=== PATIENT | male | born 1975 | race Caucasian/White ===

== ENCOUNTER 2025-04-14 09:53 | Outpatient (AMB) | payer OTHER, SELFPAY ==
--- NOTE | 2025-04-14 10:55 | A.OFFPC_ITS ---
Vital Signs 04/14/25 10:56 Height 5 ft 10 in Weight 214 lb BMI 30.7 BP 140/92 H Blood Pressure Location Rt brachial Position Sitting Respiration 16 Pulse 72 Pulse Source Pulse Oximeter Temp 98.2 F Temp Source Oral Pulse Oximetry (%) 98 Oxygen Delivery Method Room Air Intake Visit Reasons: Hernia Intake Note: Pt is here today as a New Patient to [facility] and c/o umbilical hernia has it for 12yrs Allergies No Known Allergies Allergy (Verified 04/14/25 11:07) Medication List - Last Reconciled 04/14/25 by Carmen Monge MD ascorbic acid (vitamin C) 1,000 mg PO DAILY al (Zingiber officinalis) 500 mg PO DAILY fq-1-hav-epa-fish oil-vit D3 300-1,000-1,000 mg-mg-unit caps PO sya-Fewjgg-ktzq-qofv-K5-T7-Zn 30-25-62.5 mg (Prostate Health Men's) caps PO Tobacco use date assessed: 04/14/25 Dental Screening Dental Screen Date: 04/14/25 Did you have a dental visit in the last 12 months?: No Did you have a dental problem in the last 6 months where you did not have access to dental care?: No Was dental information given to patient?: Patient has dentist HPI Hernia HPI Details 41-year-old male here today complaining of painful umbilical hernia, which has been present now for the last 5 years. Patient now states that it hurts whenever he lifts anything heavy and seems to be increasing in size. [facility] Medical History (Updated 04/14/25 @ 11:12 by Carmen Monge MD) Irreducible umbilical hernia Surgical History (Updated 04/14/25 @ 11:12 by Carmen Monge MD) No pertinent past surgical history Family History (Updated 04/14/25 @ 11:14 by Carmen Monge MD) Father Brain cancer Mother Multiple sclerosis Paternal Uncle Diabetes mellitus Social History Housing: House Patient Tobacco Use Status: Never used Tobacco e-Cigarette/Vaping Use: Never Used service: No Current occupational status: employed Cognitive needs: No Hearing needs: No Vision needs: No Questionnaire PHQ-9 Over the last 2 weeks, how often have you been bothered by any of the following problems? 1. Little interest or pleasure in doing things: not at all 2. Feeling down, depressed, or hopeless: not at all 3. Trouble falling or staying asleep, or sleeping too much: not at all 4. Feeling tired or having little energy: not at all 5. Poor appetite or overeating: not at all 6. Feeling bad about yourself - or that you are a failure or have let yourself or your family down: not at all 7. Trouble concentrating on things, such as reading the newspaper or watching television: not at all 8. Moving or speaking so slowly that other people could have noticed. Or the opposite - being so fidgety or restless that you have been moving around a lot more than usual: not at all 9. Thoughts that you would be better off or of hurting yourself in some way: not at all Total score: 0 Depression Screening Interpretation: Negative Depression Screening Done: Yes 91210 - PHQ-9 Billing: Yes Source: Developed by Drs. Sergei Weiner, Radha Haq, Judson Ferguson and colleagues, with an educational lotus from [employer]. Thrive Questionnaire Date Thrive assessed: 04/11/25 I am a: Patient What is your living situation today?: I have a steady place to live Within the past 12 months, did the food you bought not last and you didn't have the money to get more?: Never true Within the past 12 months, did you worry whether your food would run out before you got money to buy more?: Never true Do you have trouble paying for medicines?: No Do you have trouble getting transportation to medical appointments?: No Do you have trouble paying your heating and electricity bill?: No Do you have trouble taking care of your child, family member or friend?: No Do you have trouble with day-to-day activities such as bathing, preparing meals, shopping, managing finances, etc.?: No Are you currently unemployed and looking for a job?: No Are you interested in more education?: No Please select the resources that you would like help with: None Currently or been in a relationship where the following occur: No concerns reported THRIVE Score: 0 AUDIT C Alcohol Use Questionnaire (AUDIT-C) 1. How often do you have a drink containing alcohol?: 2-4 times a month 2. How many drinks containing alcohol do you have on a typical day when you are drinking?: 3 or 4 3. How often do you have six or more drinks on one occasion?: Never Total Score: 3 ASHKAN-7 AMB Questionnaire ASHKAN-7 Date ASHKAN - 7 assessed: 04/14/25 Feeling nervous, anxious, or on edge: 0 = Not at all Not being able to stop or control worryin = Not at all Worrying too much about different things: 0 = Not at all Trouble relaxin = Not at all Being so restless that it is hard to sit still: 0 = Not at all Becoming easily annoyed or irritable: 0 = Not at all Feeling afraid as if something awful might happen: 0 = Not at all Total ASHKAN-7 score (0-4 normal; 5-9 mild; 10-14 moderate; 15-21 severe): 0 Source: Developed by Drs. Sergei Weiner, Radha Haq, Judson Ferguson and colleagues, with an educational lotus from [employer]. Review of Systems Const All systems reviewed & are unremarkable except as noted in HPI and below Physical exam (Primary Care) Vital Signs: Last Vital Signs Temp 98.2 F 04/14/25 10:56 Pulse 72 04/14/25 10:56 Resp 16 04/14/25 10:56 BP 140/92 H 04/14/25 10:56 Pulse Ox 98 04/14/25 10:56 Oxygen Delivery Method Room Air 04/14/25 10:56 BMI result Body Mass Index 30.7 Tobacco/Smoking Status: Tobacco use Status Tobacco use date assessed 04/14/25 04/14/25 11:06 Patient Tobacco Use Status Never used Tobacco 04/14/25 11:06 e-Cigarette/Vaping Use Never Used 04/14/25 11:06 PHQ-9: PHQ-9 Score PHQ-9: Total score 0 04/14/25 11:17 Depression Screening Interpretation: Negative Thrive Assessment: Date of Thrive Assessment Date Thrive assessed 04/11/25 04/14/25 11:06 Currently or been in a relationship where the following occur: No concerns reported Const General: comfortable, no acute distress and alert Orientation/consciousness: patient oriented x3 HENMT Ears: external ears normal General nose exam: Normal external nose present Mouth: Normal oral and palatal mucosa present, oropharynx normal and moist mucous membranes Neck Neck: Yes full ROM, Yes no lymphadenopathy and Yes supple Resp Effort & Inspection: normal respiratory effort and able to speak in complete sentences Auscultation: clear to auscultation bilaterally Cardio Rate: regular rate Rhythm: regular rhythm Heart sounds: S1 normal heart sound present and S2 normal heart sound present GI Other: Irreducible umbilical hernia present Palpation (GI): Soft to palpation, nontender and no masses Auscultation: normal bowel sounds Skin General skin exam: no rashes or lesions noted Neuro General: patient oriented x3, gait normal, tone normal, moves all extremities, Normal light touch and pain sensation and no focal motor deficits Cranial nerves: Yes CN's II-XII intact bilaterally Cognition (Neuro): normal cognition Coding Level of Care Code Est Pt Level 4 (01690) Diagnoses Irreducible umbilical hernia K42.0 Additional Codes PHQ-9 - 47636 - PHQ-9 Billing: Yes ([id number]) Assessment & Plan Assessment & Plan (1) Irreducible umbilical hernia: Code(s): K42.0 - Umbilical hernia with obstruction, without gangrene Category: Medical Plan: General surgery consult obtained. Patient advised to avoid any heavy lifting of weights. Until seen and evaluated by surgery Orders: Referrals General Surgery Referral K42.0 - Umbilical hernia with obstruction, without gangrene
[2025-04-14 10:56] VITALS: BP 140/92; PULSE 72; RESP 16; TEMP 36.8; O2SAT 98; BMI 30.7
== END 2025-04-14 11:23 | disposition home or self-care (01) ==
PROVIDERS: Visit Provider Internal Medicine
DX: K42.0 Umbilical hernia with obstruction, without gangrene (principal)

== ENCOUNTER → 2025-04-14 09:53 | Outpatient (BNVA) | payer OTHER, SELFPAY | PROVIDERS: Visit Provider Internal Medicine | DX: K42.0 Umbilical hernia with obstruction, without gangrene (principal) | CPT/HCPCS: 96127; 99212 ==

== ENCOUNTER 2025-05-12 06:02 | Outpatient (REF) | payer OTHER, SELFPAY ==
[2025-05-12 10:23] LABS: Hematocrit 44.8 % (42.0-52.0); Hemoglobin 15.9 g/dl (14.0-18.0)
[2025-05-12 10:40] LABS: Alanine Aminotransferase 82 U/L (0-40); Anion Gap 17 (12-20); Aspartate Amino Transferase 67 U/L (5-37); Blood Urea Nitrogen 17 mg/dL (9-16); Calcium 9.4 mg/dL (8.4-10.2); Carbon Dioxide 25 mmol/L (22-29); Chloride 98 mmol/L (96-108); Cholesterol 285 mg/dL (<200); Estimated Glomerular Filt Rate > 60; HDL Cholesterol 46 mg/dL (>40); Potassium 3.7 mmol/L (3.3-5.1); Sodium 136 mmol/L (135-145); Triglycerides 316 mg/dL (<150)
== END 2025-05-12 06:03 | disposition home or self-care (01) ==
LOC: HO.HMGCLDS 06:02
PROVIDERS: PCP Internal Medicine; Visit Provider Internal Medicine
DX: Z13.1 Encounter for screening for diabetes mellitus (principal); Z13.220 Encounter for screening for lipoid disorders
CPT/HCPCS: 36415; 80048; 80061; 84450; 84460; 85014; 85018

== ENCOUNTER 2025-05-25 10:10 | Outpatient (AMB) | payer OTHER, SELFPAY ==
[2025-05-25 10:14] VITALS: BP 130/90; PULSE 63; RESP 15; TEMP 36.8; O2SAT 98; BMI 30.1
--- NOTE | 2025-05-25 10:14 | A.OFFPC_ITS ---
Vital Signs 05/25/25 10:14 Height 5 ft 10 in Weight 210 lb BMI 30.1 BP 130/90 H Blood Pressure Location Lt brachial Position Sitting Respiration 15 Pulse 63 Pulse Source Pulse Oximeter Temp 98.3 F Temp Source Oral Pulse Oximetry (%) 98 Oxygen Delivery Method Room Air Intake Visit Reasons: PE PER DR Albarado Intake Note: Pt is here today for his PE Allergies No Known Allergies Allergy (Verified 05/25/25 10:42) Medication List - Last Reconciled 05/25/25 by Carmen Monge MD ascorbic acid (vitamin C) 1,000 mg PO DAILY al (Zingiber officinalis) 500 mg PO DAILY oq-5-bjs-epa-fish oil-vit D3 300-1,000-1,000 mg-mg-unit caps PO mpg-Yjycih-umos-wwxs-U4-W1-Zn 30-25-62.5 mg (Prostate Health Men's) caps PO Tobacco use date assessed: 05/25/25 Dental Screening Dental Screen Date: 05/25/25 Did you have a dental visit in the last 12 months?: No Did you have a dental problem in the last 6 months where you did not have access to dental care?: No Was dental information given to patient?: Patient has dentist HPI PE PER DR Albarado HPI Details - The patient is a 49-year-old male pres enting for a physical exam. Review of recent labs showed elevated fasting glucose at 331 mg/dL. Reports increased thirst and frequent urination. No family history of diabetes mellitus, except for paternal uncle diagnosed when he was in his 70's. Patient has been eating home cooked meals, avoiding a lot of starches, does not eat junk food but drinks diet soda. States that he stays active, walks regularly for exercise - has dyslipidemia as noted on latest fa sting labs with Total cholesterol is 285 mg/dL, triglycerides 316 mg/dL, and LDL 176 mg/dL - has an umbilical hernia which hurts wh enever it gets bumped, present for 12 years, causing discomfort, with a surgical consultation scheduled for next month with Dr. Riggs. - History of LASIK surgery: Underwent diop ccessful LASIK surgery three months ago at [facility] Medical History (Updated 05/25/25 @ 11:16 by Carmen Monge MD) Dyslipidemia Uncontrolled type 2 diabetes mellitus with hyperglycemia Irreducible umbilical hernia Surgical History (Updated 05/26/25 @ 10:08 by Carmen Monge MD) S/P LASIK surgery Family History Father Brain cancer Mother Multiple sclerosis Paternal Uncle Diabetes mellitus Social History Housing: House Patient Tobacco Use Status: Never used Tobacco e-Cigarette/Vaping Use: Never Used service: No Current occupational status: employed Cognitive needs: No Hearing needs: No Vision needs: No Questionnaire PHQ-9 Over the last 2 weeks, how often have you been bothered by any of the following problems? Depression Screening Interpretation: Negative Depression Screening Done: Yes Source: Developed by Drs. Sergei Weiner, Radha Haq, Judson Ferguson and colleagues, with an educational lotus from [employer]. Thrive Questionnaire Date Thrive assessed: 04/11/25 I am a: Patient What is your living situation today?: I have a steady place to live Within the past 12 months, did the food you bought not last and you didn't have the money to get more?: Never true Within the past 12 months, did you worry whether your food would run out before you got money to buy more?: Never true Do you have trouble paying for medicines?: No Do you have trouble getting transportation to medical appointments?: No Do you have trouble paying your heating and electricity bill?: No Do you have trouble taking care of your child, family member or friend?: No Do you have trouble with day-to-day activities such as bathing, preparing meals, shopping, managing finances, etc.?: No Are you currently unemployed and looking for a job?: No Are you interested in more education?: No Please select the resources that you would like help with: None Currently or been in a relationship where the following occur: No concerns reported THRIVE Score: 0 ASHKAN-7 AMB Questionnaire ASHKAN-7 Date ASHKAN - 7 assessed: 04/14/25 Source: Developed by Drs. Sergei Weiner, Radha Haq, Judson Ferguson and colleagues, with an educational lotus from [employer] Review of Systems Const Denies body aches, Denies fatigue, Denies fever(s), Denies headache(s) and Denies weakness Eyes Denies change in vision ENT Denies dizziness, Denies dry mouth, Denies headache(s) and Denies nasal congestion Card Denies chest pain, Denies lightheadedness, Denies palpitations and Denies dyspnea Resp Denies chest congestion, Denies cough, Denies dyspnea and Denies wheezing GI Denies abdominal pain, Denies change in bowel habits and Denies heartburn Denies hematuria, Denies difficulty urinating and Denies dysuria Musc Reports no additional complaints Skin/Breast Reports as per HPI and Denies rash Neuro Denies dizziness, Denies headache(s) and Denies weakness Psych Reports no additional complaints Endo Reports as per HPI, Denies fatigue and Denies palpitations Philip/Lymph Denies easy bruising Aller/Immun Denies seasonal rhinorrhea and Denies wheezing Physical exam (Primary Care) Vital Signs: Last Vital Signs Temp 98.3 F 05/25/25 10:14 Pulse 63 05/25/25 10:14 Resp 15 05/25/25 10:14 BP 130/90 H 05/25/25 10:14 Pulse Ox 98 05/25/25 10:14 Oxygen Delivery Method Room Air 05/25/25 10:14 BMI result Body Mass Index 30.1 Tobacco/Smoking Status: Tobacco use Status Tobacco use date assessed 05/25/25 05/25/25 10:15 Patient Tobacco Use Status Never used Tobacco 05/25/25 10:15 e-Cigarette/Vaping Use Never Used 05/25/25 10:15 Depression Screening Interpretation: Negative Thrive Assessment: Date of Thrive Assessment Date Thrive assessed 04/11/25 05/25/25 10:15 Currently or been in a relationship where the following occur: No concerns reported Advance Care Planning discussion: Completed/Scanned Date of discussion: 05/25/25 Who was present: Patient Forms completed: Health Care Proxy Time spent: 16-45 minutes Actual minutes spent: 2 Const General: comfortable, no acute distress and alert Orientation/consciousness: patient oriented x3 HENMT Ears: external ears normal General nose exam: Normal external nose present Mouth: Normal oral and palatal mucosa present, oropharynx normal and moist mucous membranes Neck Neck: Yes full ROM, Yes no lymphadenopathy and Yes supple Chest Chest palpation & inspection: normal inspection of the chest Resp Effort & Inspection: normal respiratory effort and able to speak in complete sentences Auscultation: clear to auscultation bilaterally Cardio Rate: regular rate Rhythm: regular rhythm Heart sounds: S1 normal heart sound present and S2 normal heart sound present GI Other: Irreducible umbilical hernia present Palpation (GI): Soft to palpation, nontender and no masses Auscultation: normal bowel sounds General: Yes no CVA tenderness Male General Exam: Yes normal external exam Back/Spine/Pelvis Back: no CVA tenderness Skin General skin exam: no rashes or lesions noted Neuro General: patient oriented x3, gait normal, tone normal, moves all extremities, Normal light touch and pain sensation, no focal motor deficits and normal sensation to monofilament Cranial nerves: Yes CN's II-XII intact bilaterally Cognition (Neuro): normal cognition Gait exam (Neuro): Normal gait present Extrem General: Yes normal to inspection, Yes full ROM, Yes no joint enlargement, Yes no clubbing, cyanosis or edema, Yes no calf tenderness and Yes normal gait Psych Appearance: grossly normal and well kempt Mental Status: mental status grossly normal Speech and movement: Normal speech and movement present Affect: normal affect Results AMB Hemoglobin A1c AMB Hemoglobin A1c 13.4 % Last Edit by Torri Ballesteros CMA on 05/25/25 10:59 Results Reviewed Results Reviewed: Laboratory Last Values Hgb A1c (Clinic) 13.4 % (4.0-6.0) H 05/25/25 10:52 Name: Espinoza Moore Age/Sex: 49/M : 1975 Unit#: [id number] Attend Dr: Carmen Monge MD Re05/12/25 Status: DEP REF Location: [facility] Disch: SPEC : [id number] JAMES: 05/12/25 STATUS: COMP REQ : [id number] RECD: 05/12/[address]: Carmen Monge MD COMP: 05/12/253 ENTERED: 05/12/[address]: ORDERED: HGB and HCT Test Result Flag Reference HGB 15.9 14.0-18.0 g/dl HCT 44.8 42.0-52.0 % Name: Espinoza Moore Age/Sex: 49/M : 1975 Unit#: [id number] Attend Dr: Carmen Monge MD Re05/12/25 Status: DEP [facility] Disch: SPEC : [id number] JAMES: 05/12/25 STATUS: COMP REQ : [id number] RECD: 05/12/[address]: Carmen Monge MD COMP: 05/12/25 ENTERED: 05/12/[address]: ORDERED: Met Prof Fast, AST, ALT, Lipid Panel Test Result Flag Reference Sodium 136 135-145 mmol/L Potassium 3.7 3.3-5.1 mmol/L CL 98 96-108 mmol/L CO2 25 22-29 mmol/L Gap 17 12-20 BUN 17 H 9-16 mg/dL Creat 1.05 0.5-1.4 mg/dL eGFR > 60 Chronic Kidney Disease: Estimated GFR < 60 mL/min/1.73m2 Severe Kidney Disease: Estimated GFR < 15 mL/min/1.73m2 FBS 331 H 60-99 mg/dL A fasting glucose of 126 mg/dl or greater on more than one occasion is considered diagnostic of diabetes. CA 9.4 8.4-10.2 mg/dL AST (GOT) 67 H 5-37 U/L ALT (GPT) 82 H 0-40 U/L Triglyceride 316 H <150 mg/dL Desirable Triglyceride: less than 150 mg/dL Borderline High Triglyceride 150-199 mg/dL High Triglyceride: 200-499 mg/dL Very High Triglyceride: greater than or equal to 5OO mg/dL Cholesterol 285 H <200 mg/dL Desirable Cholesterol: less than 200 mg/dL Borderline High Cholesterol: 200-239 mg/dL High Cholesterol: greater than 239 mg/dL LDL Calculated 176 H <100 mg/dL Desirable LDL: less than 100 mg/dL Near Optimal/Above Optimal LDL: 110-129 mg/dL Borderline High LDL: 130-159 mg/dL High LDL: 160-189 mg/dL Very High LDL: greater than or equal to 190 mg/dL HDL 46 >40 mg/dL Desirable HDL: greater than 40 mg/dL Note: This HDL assay may give artificially low results in patients with liver disease. Coding Level of Care Code Est Pt Prev Care 40-64y(03656) Diagnoses Annual visit for general adult medical examination with abnormal findings Z00.01 Uncontrolled type 2 diabetes mellitus with hyperglycemia E11.65 Dyslipidemia E78.5 Advance directive discussed with patient Z71.89 Additional Codes Vital Signs *Quality* - Advance Care Planning discussion: Completed/Scanned ([id number]) Vital Signs *Quality* - Time spent: 16-45 minutes ([id number]) Assessment & Plan Assessment & Plan (1) Annual visit for general adult medical examination with abnormal findings: Code(s): Z00.01 - Encounter for general adult medical examination with abnormal findings Plan: Recent fasting lab results reviewed with patient. Recommended dental visit every 6 months and regular eye exams, yearly for routine eye exam and diabetes retinopathy screening. Take adequate calcium in diet and vitamin-D 3 at 2000 IU per cap once a day, in addition to weight-bearing exercises to help maintain good muscle tone and weight control. Instructed to do self-testicular exam check for any mass. Advised to get yearly flu shot, pneumonia vaccine as he is newly diagnosed to have diabetes mellitus, Tdap and COVID booster but patient does not want to get any vaccines at this time. (2) Uncontrolled type 2 diabetes mellitus with hyperglycemia: Code(s): E11.65 - Type 2 diabetes mellitus with hyperglycemia Category: Medical Plan: New diagnosed diabetes mellitus. Patient does not want to start any insulin at present time, will start on metformin ER 750 mg taken 1 tablet twice a day with meals. Advised to initially take once a day for the 1st week, and increase it to twice a day if tolerated. Referred to early childhood special educator for guidance, prescription sent also for Onetouch Ultra meter, One-Touch Ultra test strips and lancets, to check the goes twice a day before meals, and record readings. Bring it with him on appointment with early childhood special educator. Counseled regarding importance of yearly diabetes retinopathy screening. Patient advised to inspect feet daily, for any signs of injury, callus or infection. Compliance with diet and regular exercise again stressed. Blood pressure goal is less than 130/80, goal LDL is less than 100 and goal hemoglobin A1c is less than 7% follow-up appointment made in--3-months, after fasting labs done. Advised to get yearly flu shot and pneumonia vaccine but patient declined getting vaccines at this time (3) Dyslipidemia: Code(s): E78.5 - Hyperlipidemia, unspecified Category: Medical Plan: Reviewed recent fasting lipid profile with patient with elevated triglycerides total cholesterol and LDL cholesterol noted .. Started on rosuvastatin 5 mg to take 1 tablet 3 times a week for 3 months, in addition to adherence to low-cholesterol diet and moderate intensity exercise, at least 30 minutes 4 times a week. Advised patient to make healthy food choices, eat more fruits, vegetables, whole grains, wild caught fish and low-fat dairy. Limit amount of meat and fried or fatty food products, as well as processed foods and fast foods. Follow-up scheduled with repeat fasting lipid panel in 3 months. (4) Advance directive discussed with patient: Code(s): Z71.89 - Other specified counseling Plan: Initiated the conversation about Advanced Directives. Advanced Directives help patients prepare for current and future decisions about their medical treatment and place of care. Discussed with patient that it is a process where a patients current condition and prognosis are reviewed, their wishes for information regarding their illness are elicited, and likely medical dilemmas are presented and options discussed. Healthcare proxy form completed today. The form can be amended as needed, reviewed yearly and make changes as needed Orders: Orders Lipid Panel 3 Months E11.65 - Type 2 diabetes mellitus with hyperglycemia, E78.5 - Hyperlipidemia, unspecified Hemoglobin A1c 3 Months E11.65 - Type 2 diabetes mellitus with hyperglycemia, E78.5 - Hyperlipidemia, unspecified Microalbumin, Random (w Creat) 3 Months E11.65 - Type 2 diabetes mellitus with hyperglycemia, E78.5 - Hyperlipidemia, unspecified Comprehensive [place]. Panel Fast 3 Months E11.65 - Type 2 diabetes mellitus with hyperglycemia, E78.5 - Hyperlipidemia, unspecified AMB Hemoglobin A1c 05/25/25 Z13.9 - Encounter for screening, unspecified Referrals Cologuard Test Z12.11 - Encounter for screening for malignant neoplasm of colon, Z12.12 - Encounter for screening for malignant neoplasm of rectum Medications: New rosuvastatin 5 mg PO 3XW 39 tabs 1RF 3 months lancets (OneTouch UltraSoft 2 Lancet) Check fasting blood sugar twice a day before meals 200 ea 0RF E11.65 - Type 2 diabetes mellitus with hyperglycemia, E78.5 - Hyperlipidemia, unspecified metformin ER 750 mg PO QPM 60 tabs 0RF OneTouch Ultra Test (blood sugar diagnostic) Check fasting glucose twice a day before meals 100 ea 5RF NS E11.65 - Type 2 diabetes mellitus with hyperglycemia OneTouch Ultra2 Meter (blood-glucose meter) Check fasting blood sugar twice a day before meals 1 ea 0RF NS E11.65 - Type 2 diabetes mellitus with hyperglycemia
--- OUTSIDE RECORDS SUMMARY | 2025-05-25 10:51 | XMS_ITS | Clinical Summary ---
Author Organization [facility] Address [address] [place] [address] Phone Care Team Providers Care Earth Auger Operator Name Role Phone Carmen Monge MD Primary Care Provider Allergies No known active allergies Medications penicillin V potassium (VEETIDS) 500 MG tablet Take 1 tablet (500 mg total) by mouth 2 (two) times a day. Take w food, yogurt, probiotics. Finish all. 20 tablet 11/18/2023 Active Immunizations Immunization Administration Dates Next Due COVID-19 (Pre-08/04) Pfizer Vaccine, mRNA, PF Td, unspecified formulation 09/12/2012 Social History Tobacco Use Types Packs/Day Years Used Date Smoking Tobacco: Never Smokeless Tobacco: Never Tobacco Cessation:Counseling Given: Not Answered Education Answer Date Recorded Are you interested in more education? Not on mirta e 11/18/2023 Are you concerned about learning? Not on file 11/18/2023 No 11/18/2023 No 11/18/2023 Digital Access Answer Date Recorded No 11/18/2023 No 11/18/2023 Reliable internet access at home? Not on file 11/18/2023 Device with a working camera? Not on file Sex and Gender Information Value Date Recorded Sex Assigned at Not on file Legal Sex Male 9:27 PM EDT Gender Identity Not on file Sexual Orientation Not on file Last Filed Vital Signs Vital Sign Reading Time Taken Comments Blood Pressure 179/80 11/18/2023 8:09 AM EST Pulse 104 11/18/2023 8:09 AM EST Temperature 37.1 C (98.7 F) 11/18/2023 8:09 AM EST Respiratory Rate 18 11/18/2023 8:09 AM EST Oxygen Saturation 99% 11/18/2023 8:09 AM EST Inhaled Oxygen Concentration - - Weight - - Height - - Body Mass Index - - Plan of Treatment Health Maintenance Due Date Last Done Comments LIPID PANEL 1976 DEPRESSION SCREENING 1988 HEPATITIS C SCREENING 1994 HIV ONE-TIME SCREENING (18-6 5 YEARS) 1994 SMOKING STATUS SCREENING (On ce After 26 Yrs) 2002 COLOGUARD 2021 COLONOSCOPY 2021 COLORECTAL CANCER SCREENING 2021 FIT TEST 2021 FOBT 2021 SIGMOIDOSCOPY 2021 VIRTUAL COLONOSCOPY 2021 Adult Td,Tdap Booster 09/12/2022 09/12/2012 COVID-19 VACCINE (2023-2 5 season) 2024 06/09/2021, 05/15/2021 HEPATITIS A VACCINES Aged Out No long er eligible based on patient's age to complete this topic HIB VACCINES Aged Out No longer eligi ble based on patient's age to complete this topic MENINGOCOCCAL VACCINES (ACWY) Aged Out No longer eligible based on patient's age to complete this topic MENINGOCOCCAL VACCINES (B) Aged Out N o longer eligible based on patient's age to complete this topic PNEUMOCOCCAL VACCINES (0-49 years) Aged Out No longer eligible b ased on patient's age to complete this topic Medical Devices Not on file Insurance [facility] DIRECT CONNECTORCARE DIRECT CONNECTORCARE DIRECT CONNECTORCARE DIRECT CONNECTORCARE DIRECT CONNECTORCARE DIRECT Care Teams Earth Auger Operator Relationship Specialty Start Date End Date Carmen Monge MD [facility] [place] [place] [address] [place] [address] PCP - General 11/18/23 Additional Source Comments The information contained in this document represents components of the legal health record. It is not the complete legal health record.[facility]
== END 2025-05-25 11:17 | disposition home or self-care (01) ==
LOC: HO.HMCC 10:11
PROVIDERS: PCP Internal Medicine; Visit Provider Internal Medicine
DX: Z00.01 Encounter for general adult medical examination with abnormal findings (principal); E11.65 Type 2 diabetes mellitus with hyperglycemia; E78.5 Hyperlipidemia, unspecified; Z71.89 Other specified counseling; Z00.00 Encounter for general adult medical examination without abnormal findings

== ENCOUNTER → 2025-05-25 10:10 | Outpatient (BNVA) | payer OTHER, SELFPAY | PROVIDERS: PCP Internal Medicine; Visit Provider Internal Medicine | DX: Z00.01 Encounter for general adult medical examination with abnormal findings (principal); E78.5 Hyperlipidemia, unspecified; K42.9 Umbilical hernia without obstruction or gangrene; E11.65 Type 2 diabetes mellitus with hyperglycemia; Z71.89 Other specified counseling | CPT/HCPCS: 83036; 99396; 99497 ==

== ENCOUNTER → 2025-06-09 15:32 | Outpatient (BNVA) | payer OTHER, SELFPAY | PROVIDERS: PCP Internal Medicine | DX: E11.65 Type 2 diabetes mellitus with hyperglycemia (principal) | CPT/HCPCS: 99211 ==

== ENCOUNTER 2025-06-20 10:24 | Outpatient (AMB) | payer OTHER, SELFPAY ==
--- NOTE | 2025-06-20 10:40 | MHC.OFFVIS ---
Vital Signs 06/20/25 10:48 Height 5 ft 10 in Weight 215 lb BMI 30.8 BP 136/72 Blood Pressure Location Rt brachial Position Sitting Pulse 72 Intake Visit Reasons: Umbilical hernia with obstruction Intake Note: Patient referred by pcp Dr. Monge for evaluation and treatment of Umbilical hernia. Present for 14yrs. Patient c/o: becoming bothersome, sensitive w/ touch. Photocomposing Machine Operator Required: No Accompanied by: Self / Same As Patient Allergies No Known Allergies Allergy (Verified 06/20/25 10:45) Medication List - Last Reconciled 06/20/25 by Yobany Riggs MD ascorbic acid (vitamin C) 1,000 mg PO DAILY al (Zingiber officinalis) 500 mg PO DAILY lancets (OneTouch UltraSoft 2 Lancet) Check fasting blood sugar twice a day before meals metformin ER 750 mg PO QPM zq-4-gvf-epa-fish oil-vit D3 300-1,000-1,000 mg-mg-unit caps PO OneTouch Ultra Test (blood sugar diagnostic) Check fasting glucose twice a day before meals NS OneTouch Ultra2 Meter (blood-glucose meter) Check fasting blood sugar twice a day before meals NS rosuvastatin 5 mg PO 3XW 3 months tlh-Bglhxh-iznk-[id number]-A7-X0-Zn 30-25-62.5 mg (All Together Now Men's) caps PO HPI HPI Umbilical hernia with obstruction: Details: 49-year-old male referred for an umbilical hernia. He says that he has had this lump on his umbilicus for more than 10 years now. However, this has been increasing in size. He says that this has becoming more uncomfortable with some occasional pain. He therefore wants this removed He denies GI complaints. He says he was recently diagnosed to have diabetes but he says that after doing diet control including avoiding sugary drinks, he says it is blood sugars have been normal. [facility] Medical History Dyslipidemia Uncontrolled type 2 diabetes mellitus with hyperglycemia Irreducible umbilical hernia Surgical History S/P LASIK surgery Family History Father Brain cancer Mother Multiple sclerosis Paternal Uncle Diabetes mellitus Social History Household Members: Children Housing: House Patient Tobacco Use Status: Never used Tobacco e-Cigarette/Vaping Use: Never Used service: No Current occupational status: employed Current occupation: HVAC Current occupational exposures/hazards: Yes Cognitive needs: No Hearing needs: No Vision needs: Yes Review of Systems Const Denies chills and Denies fever(s) Card Denies chest pain, Denies dyspnea and Denies dyspnea on exertion Resp Denies cough, Denies dyspnea and Denies dyspnea on exertion GI Denies hematochezia and Denies change in bowel habits Denies hematuria and Denies difficulty urinating Musc Denies back pain and Denies limited range of motion Neuro Denies focal weakness and Denies convulsions Psych Denies depression and Denies mood swings Physical Exam Const General: comfortable and no acute distress Orientation/consciousness: patient oriented x3 Neck Neck: Yes no lymphadenopathy Resp Auscultation: clear to auscultation bilaterally Cardio Rhythm: regular rhythm GI Other: Nonreducible umbilical hernia, about 2.5 cm Palpation (GI): Soft to palpation, nontender and no guarding Neuro General: patient oriented x3 Assessment & Plan Assessment & Plan (1) Irreducible umbilical hernia: Code(s): K42.0 - Umbilical hernia with obstruction, without gangrene Category: Medical Plan He has a chronically incarcerated umbilical hernia. He wants this repaired in view of increasing discomfort. I explained to him the technique of repair of the umbilical hernia with possible mesh placement. I reviewed the risks including but not limited to bleeding, infections, bowel injury, recurrence, as well as the benefits and alternatives. I explained to him what to expect postoperatively. He understands and wants to proceed. Coding Level of Care Code New Pt Level 3 (86086) Diagnoses Irreducible umbilical hernia K42.0
[2025-06-20 10:48] VITALS: BP 136/72; PULSE 72; BMI 30.8
--- OUTSIDE RECORDS SUMMARY | 2025-06-20 12:22 | XMS_ITS | Clinical Summary ---
Author Organization [facility] Address [address] [place] [address] Phone Care Team Providers Care Passenger Solicitor Name Role Phone Carmen Monge MD Primary [...] COLONOSCOPY 2021 Adult Td,Tdap Booster 09/12/2022 09/12/2012 INFLUENZA VACCINE (#1) 2025 COVID-19 VACCINE (2024-2 6 season) 2025 06/09/2021, 05/15/2021 HEPATITIS A VACCINES Aged Out [...] topic Medical Devices Not on file Insurance [facility] DIRECT CONNECTORCARE DIRECT CONNECTORCARE DIRECT CONNECTORCARE DIRECT CONNECTORCARE DIRECT [address] [address] CONNECTORCARE DIRECT Care Teams Passenger Solicitor Relationship Specialty Start Date End Date Carmen Monge MD [address] [facility] [place] [address] [address] PCP - General 11/18/23 Additional Source Comments The information contained in this document represents components of the legal health record. It is not the complete legal health record.[facility]
== END 2025-06-20 10:59 | disposition home or self-care (01) ==
LOC: HO.HGS 10:24
PROVIDERS: PCP Internal Medicine; Visit Provider Surgery
DX: K42.0 Umbilical hernia with obstruction, without gangrene (principal)
CPT/HCPCS: 99203

== ENCOUNTER → 2025-06-20 10:24 | Outpatient (BNVA) | payer OTHER, SELFPAY | PROVIDERS: PCP Internal Medicine; Visit Provider Surgery | DX: K42.0 Umbilical hernia with obstruction, without gangrene (principal) | CPT/HCPCS: 99202 ==

== ENCOUNTER → 2025-07-19 12:36 | Outpatient (BNV) | payer OTHER, SELFPAY | PROVIDERS: PCP Internal Medicine; Visit Provider Internal Medicine Cardiovascular Disease | DX: I49.8 Other specified cardiac arrhythmias (principal) | CPT/HCPCS: 93010 ==

== ENCOUNTER 2025-07-27 10:59 | Outpatient (REF) | payer OTHER, SELFPAY ==
--- OUTSIDE RECORDS SUMMARY | 2025-07-27 13:29 | XMS_ITS | Clinical Summary ---
Author Organization [facility] Address [address] [place] [address] Phone Care Team Providers Care Wet Room Worker Name Role Phone Carmen Monge MD Primary [...] topic Medical Devices Not on file Insurance [facility] DIRECT CONNECTORCARE DIRECT CONNECTORCARE DIRECT CONNECTORCARE DIRECT CONNECTORCARE [place] [address] [address] CONNECTORCARE DIRECT Care Teams Wet Room Worker Relationship Specialty Start Date End Date Carmen Monge MD [address] [facility] [address] [address] PCP - General 11/18/23 Additional Source Comments The information contained in this document represents components of the legal health record. It is not the complete legal health record.[facility]
[2025-07-27 13:53] LABS: Alanine Aminotransferase 64 U/L (0-40); Albumin Level 4.8 g/dL (3.5-5.0); Alkaline Phosphatase 72 U/L (39-117); Anion Gap 15 (12-20); Aspartate Amino Transferase 51 U/L (5-37); Blood Urea Nitrogen 15 mg/dL (9-16); Calcium 9.0 mg/dL (8.4-10.2); Carbon Dioxide 25 mmol/L (22-29); Chloride 108 mmol/L (96-108); Cholesterol 209 mg/dL (<200); Estimated Glomerular Filt Rate > 60; HDL Cholesterol 58 mg/dL (>40); Potassium 3.8 mmol/L (3.3-5.1); Sodium 144 mmol/L (135-145); Total Protein 7.7 g/dL (6.5-8.0); Triglycerides 181 mg/dL (<150)
[2025-07-27 14:10] LABS: Microalbum/Creatinine Ratio Ur 184.3 ug/mg cr (<30)
== END 2025-07-27 11:00 | disposition home or self-care (01) ==
LOC: HO.HMGCLDS 10:59
PROVIDERS: PCP Internal Medicine; Visit Provider Internal Medicine
DX: E11.65 Type 2 diabetes mellitus with hyperglycemia (principal); E78.5 Hyperlipidemia, unspecified
CPT/HCPCS: 36415; 80053; 80061; 82043; 82570; 83036

== ENCOUNTER → 2025-07-28 09:57 | Outpatient (BNVA) | payer OTHER, SELFPAY | PROVIDERS: PCP Internal Medicine | DX: E11.65 Type 2 diabetes mellitus with hyperglycemia (principal); Z79.84 Long term (current) use of oral hypoglycemic drugs | CPT/HCPCS: 99211 ==

== ENCOUNTER 2025-08-02 06:59 | Day surgery (SDC) | payer OTHER, SELFPAY ==
--- OUTSIDE RECORDS SUMMARY | 2025-06-24 07:56 | XMS_ITS | Clinical Summary ---
Author Organization [facility] Address [address] [place] [address] Phone Care Team Providers Care Inspector Mechanical Name Role Phone Camren Monge MD Primary Care Provider Allergies No [...] topic Medical Devices Not on file Insurance [facility] DIRECT CONNECTORCARE DIRECT CONNECTORCARE DIRECT CONNECTORCARE DIRECT CONNECTORC[place] [address] [place] [address] CONNECTORCARE DIRECT Care Teams Inspector Mechanical Relationship Specialty Start Date End Date Carmen Monge MD [address] [place] [address] [place] [address] PCP - General 11/18/23 Additional Source Comments The information contained in this document represents components of the legal health record. It is not the complete legal health record.[facility]
--- NOTE | 2025-07-19 | ECG_ITS ---
Test Reason : PREOP Blood Pressure : */* mmHG Vent. Rate : 69 BPM Atrial Rate : 69 BPM P-R Int : 152 ms QRS Dur : 92 ms QT Int : 446 ms P-R-T Axes : 37 69 78 degrees QTcB Int : 477 ms Normal sinus rhythm with sinus arrhythmia Nonspecific T wave abnormality Prolonged QT Abnormal ECG No previous ECGs available Referred By: Deepika Garcia Electronically Signed By: BRE COBB MD
[2025-07-19 11:42] VITALS: BP 170/94; PULSE 72; RESP 18; O2SAT 99; BMI 33.4
--- NOTE | 2025-07-19 12:14 | HO.ANESPROP2 ---
Documented by User: Deepika Garcia NP 08/01/25 08:55 HPI - Anesthesia Eval Consult details Narrative: 49 yr old male for Repair Incarcerated Hernia Umbilical Reducible with possible mesh scheduled for 08/02/25 seen in PAT 07/19/25 No CP/SOB with moderate activity daily. No recent illness Newly diagnosed Type 2 DM: A1C 13% 05/2025; checking BG at home sparingly; per 07/28 teaching note, repeat A1C was 7.4%. BG 120s HTN: not on medication, does not check BP at home High triglycerides: 316 05/12/25, *pt has since cut out sugary beverages PMFSH Active Problems Active Problems: All Active Problems Dyslipidemia (Acute) Uncontrolled type 2 diabetes mellitus with hyperglycemia (Acute) Irreducible umbilical hernia (Acute) Past Medical History Medical History Dyslipidemia Uncontrolled type 2 diabetes mellitus with hyperglycemia Irreducible umbilical hernia Family History Family History Father Brain cancer Mother Multiple sclerosis Paternal Uncle Diabetes mellitus Family history of problems with anesthesia: No Surgical History Surgical History Hx of tooth extraction S/P LASIK surgery History of Problems with Anesthesia: No Social History Social History Household Members: Children Housing: House Are you a primary resident care provider to a significant other at home: No Do you presently have visiting nurse or other home services: No Patient Tobacco Use Status: Never used Tobacco e-Cigarette/Vaping Use: Never Used Use of substances other than those prescribed or required for medical reasons: No Have you been hit, kicked, punched, or otherwise hurt by someone within the past year? If so, by whom?: No Are you DNR?: No Advance Directives: No Advance Directives Information Provided: Yes Advance Directives on File: No Poor oral hygiene: No service: No Current occupational status: employed Current occupation: HVAC Current occupational exposures/hazards: Yes Cognitive needs: No Hearing needs: No Vision needs: Yes Meds Allergies Allergy/AdvReac Type Severity Reaction Status Date / Time No Known Allergies Allergy Verified 06/20/25 10:45 Home Medications ?Medication ?Instructions ?Recorded ?Confirmed ?Last Taken ?Type ascorbic acid (vitamin C) 1,000 mg 1,000 mg PO QPM 04/14/25 07/19/25 07/29/25 History capsule al (Zingiber officinalis) 500 500 mg PO QPM 04/14/25 07/19/25 07/29/25 History mg capsule ta-3-hks-epa-fish oil-vit D3 300 1 cap PO QPM 04/14/25 07/19/25 07/29/25 History mg-1,000 mg-1,000 unit capsule saw palm 30 mg-Pygeum 25 mg-beta 1 cap PO QPM 04/14/25 07/19/25 07/29/25 History sitos 62.5 px-rejd-B1-B6-zinc capsule (Prostate Health Men's) cyanocobalamin (vitamin B-12) 50 50 mcg PO DAILY 07/19/25 07/19/25 07/29/25 History mcg tablet (Vitamin B-12) fluoride (sodium) 0.5 mg (1.1 mg 0.5 mg PO DAILY 07/19/25 07/19/25 07/29/25 History sodium fluoride) chewable tablet turmeric 400 mg capsule 400 mg PO QPM 07/19/25 07/19/25 07/29/25 History Exam Height,Weight and Vital Signs: Height 5 ft 9 in Weight 102.512 kg Last Vital Signs Pulse 72 07/19/25 11:42 Resp 18 07/19/25 11:42 BP 170/94 H 07/19/25 11:42 Pulse Ox 99 07/19/25 11:42 O2 Del Method Room Air 07/19/25 11:42 Narrative Narrative: EKG 07/19/25 Vent. Rate : 69 BPM Atrial Rate : 69 BPM P-R Int : 152 ms QRS Dur : 92 ms QT Int : 446 ms P-R-T Axes : 37 69 78 degrees QTcB Int : 477 ms Normal sinus rhythm with sinus arrhythmia Nonspecific T wave abnormality Prolonged QT Abnormal ECG No previous ECGs available Airway Mallampati Class: III TM Dist: >3cm Neck ROM: Full Adult Head Mouth w/Numbe Teeth:  1. Loose- patient warned of risks of damage/ loss of tooth Loose/Missing/Broken Teeth: No Heart: RRR Lungs: CTAB Assessment and Plan Final Anesthetic Review Family History of Problems with Anesthesia: No History of Problems with Anesthesia: No Documented by User: Aquilino Duke MD 08/02/25 08:15 PMFSH Past Medical History Medical History Dyslipidemia Uncontrolled type 2 diabetes mellitus with hyperglycemia Irreducible umbilical hernia Family History Family History Father Brain cancer Mother Multiple sclerosis Paternal Uncle Diabetes mellitus Surgical History Surgical History Hx of tooth extraction S/P LASIK surgery Social History Social History Household Members: Children Housing: House Are you a primary resident care provider to a significant other at home: No Do you presently have visiting nurse or other home services: No Patient Tobacco Use Status: Never used Tobacco e-Cigarette/Vaping Use: Never Used Use of substances other than those prescribed or required for medical reasons: No Have you been hit, kicked, punched, or otherwise hurt by someone within the past year? If so, by whom?: No Are you DNR?: No Advance Directives: No Advance Directives Information Provided: Yes Advance Directives on File: No Poor oral hygiene: No service: No Current occupational status: employed Current occupation: HVAC Current occupational exposures/hazards: Yes Cognitive needs: No Hearing needs: No Vision needs: Yes Meds Allergies Allergy/AdvReac Type Severity Reaction Status Date / Time No Known Allergies Allergy Verified 06/20/25 10:45 Home Medications ?Medication ?Instructions ?Recorded ?Confirmed ?Last Taken ?Type ascorbic acid (vitamin C) 1,000 mg 1,000 mg PO QPM 04/14/25 07/19/25 07/29/25 History capsule al (Zingiber officinalis) 500 500 mg PO QPM 04/14/25 07/19/25 07/29/25 History mg capsule le-4-lkr-epa-fish oil-vit D3 300 1 cap PO QPM 04/14/25 07/19/25 07/29/25 History mg-1,000 mg-1,000 unit capsule saw palm 30 mg-Pygeum 25 mg-beta 1 cap PO QPM 04/14/25 07/19/25 07/29/25 History sitos 62.5 sq-kelj-J0-B6-zinc capsule (Prostate Health Men's) cyanocobalamin (vitamin B-12) 50 50 mcg PO DAILY 07/19/25 07/19/25 07/29/25 History mcg tablet (Vitamin B-12) fluoride (sodium) 0.5 mg (1.1 mg 0.5 mg PO DAILY 07/19/25 07/19/25 07/29/25 History sodium fluoride) chewable tablet turmeric 400 mg capsule 400 mg PO QPM 07/19/25 07/19/25 07/29/25 History Exam Exam Date and Time: 08/02/2025 Airway Adult Head Mouth w/Numbe Teeth:  1. Loose- patient warned of risks of damage/ loss of tooth Assessment and Plan Assessment Anesthesia Assessment: Anesthesia Plan Discussed and Chart Reviewed Final Anesthetic Review NPO: Yes ASA Class: II Final Preanesthetic Review: No Changes in Pt Med Stat, Meds/Allgs Chart Reviewed, Consent Obtained/Reviewed and Anes Risks/Benef Reviewed Patient Risk: Low Procedure Risk: Low Anesthetic Plan Anesthetic Plan: GA Disposition: Standard PACU
[2025-08-02] VITALS (12 sets, daily range): BP systolic 160–217; BP diastolic 74–129; PULSE 70–85; RESP 14–18; TEMP 36.4–36.5; O2SAT 91–99; BMI 32.8
[2025-08-02 07:13] LABS: Glucose, Whole Blood 124 mg/dL (60-115)
[2025-08-02] MEDS: Lactated Ringers 1,000 ML 100 ML IVCONT (07:30)
--- NOTE | 2025-08-02 08:07 | MHC.SHP ---
Pre-Procedural Eval Section A - 24 Hr Update-Section A only Date of Service: 08/02/25 Section B - Complete if H&P > 30 days Chief Complaint: Umbilical hernia with obstruction, w/o gangrene Details of Present Illness: umbilical hernia, chronically incarcerated Relevant Family History (Specify if Yes): No Relevant Social History: None Present Medications: see Short Stay Collaborative assessment Medical History: Significant History (Diabetes, hyperlipidemia) History of Previous Operations: No relevant previous surgery Allergies: Allergies Allergy/AdvReac Type Severity Reaction Status Date / Time No Known Allergies Allergy Verified 06/20/25 10:45 Review of Systems Sugical H&P ROS: Negative: Constitution, Cardiovascular, Respiratory and Gastrointestinal Exam Surgical H&P Exam: Normal: Heart and Normal: Lungs and Significant Findings: Abdomen (Umbilical hernia, about 2.5 cm, nonreducible) Plan Diagnosis/Plan: Unchanged I have reviewed the history and physical and performed a pertinent physical examination on my patient. No changes have occurred unless specified. Time Spent With Patient Time: Total time managing care of this patient today ____ minutes.
--- NOTE | 2025-08-02 09:17 | P.OP_ITS ---
Operative Note Operative Note Date of Service: 08/02/25 Narrative: Preop diagnosis: Chronically incarcerated umbilical hernia Postop diagnosis: The same Procedure: Repair of chronically incarcerated umbilical hernia with Phasix mesh Surgeon: Yobany Riggs MD assistant store manager: HEVER Klein The patient is a 49-year-old male with a chronically incarcerated umbilical hernia. He understood the technique of repair with mesh. He was aware of the risks, benefits, and alternatives He was brought to the operating room. He was placed supine under general anesthesia via endotracheal tube. The abdomen was prepped and draped in the usual sterile fashion. A surgical time-out was done. The patient received cefazolin 2 g IV preoperatively I infiltrated the planned line of incision with lidocaine 1%. I made a short supraumbilical curvilinear transverse incision with a blade 15. This carried down through the full-thickness of the skin. I then proceeded to gently dissect the umbilicus off as a flap from the visible hernia. This was done with Metzenbaum scissors. I circumferentially sharply dissected the umbilical hernia contents of the rest of the subcutaneous layer and the umbilicus down to the fascia. There was note of a lot of herniated fat and the neck of the fascia was also I had to enlarge she had a little bit with electrocautery. I divided all the fibrous adhesions tethering the hernia contents to the fascial edge using Metzenbaum scissors and electrocautery until was able to completely reduce the hernia contents. The fascial edge was about 1 cm in size I therefore used a small-sized Phasix mesh to reinforced this heel defect. This was flattened underneath the fascia. I secured the Prolene straps of the mesh to the fascial edge on both sides with Prolene 2 sutures. I trimmed the Prolene straps flush on the fascial level. I closed the fascia with a [id number]-jb-mglrw Maxon 1 stitch. The umbilicus was tacked down to the dimple with a Polysorb 3-0 stitch. The subdermal layer was reapposed with Polysorb 3-0 simple sutures. Skin closure was achieved with . Polysorb 4-0 subcuticular running stitch he had The area was infiltrated with Marcaine 0.5% for postop analgesia. Dressings were applied. The procedure was completed The patient tolerated the procedure well. There were no immediate complications. Initial and final counts of sponges and instruments were correct. Estimated blood loss was less than 25 cc. The patient was extubated without difficulty and transferred to the recovery room with stable vital signs.
--- NOTE | 2025-08-02 11:25 | PM.EVENT ---
Event Note Date of Service: 08/02/25 Event Note: The patient has blood pressure was markedly elevated intraoperatively I spoke to him after the procedure and recommended for him to go to the emergency room He was discharged by Anesthesiology from the PACU as his blood pressures were much better controlled I did explain to him afterwards that should see his primary care physician urgently and have his blood pressure check to make sure that this is not markedly elevated he says he understands Time Spent With Patient Time: Total time managing care of this patient today ____ minutes.
--- NOTE | 2025-08-02 14:36 | HO.ANESEVENT ---
Anesthesia Event Note Date of Service: 08/02/25 Event Note: patient was discharged home verbally by other anesthesia provider (Shania); although an active discussion was ongoing between Dr. Riggs, Dr. Jauregui, the PACU nurse, and myself regarding transferring the patient to the ED or being admitted for hypertensive urgency. Dr. Riggs followed up with the patient over the phone. Time Spent With Patient Time: Total time managing care of this patient today ____ minutes.
== END 2025-08-02 11:16 | disposition home or self-care (01) ==
PROVIDERS: PCP Internal Medicine; Visit Provider Surgery
PROC: (CPT 49592; principal; 2025-08-02 08:30)
DX: K42.0 Umbilical hernia with obstruction, without gangrene (principal); I97.88 Other intraoperative complications of the circulatory system, not elsewhere classified; Y83.8 Other surgical procedures as the cause of abnormal reaction of the patient, or of later complication, without mention of misadventure at the time of the procedure; E11.65 Type 2 diabetes mellitus with hyperglycemia; I10 Essential (primary) hypertension; E78.5 Hyperlipidemia, unspecified; Z79.84 Long term (current) use of oral hypoglycemic drugs; Z79.899 Other long term (current) drug therapy
CPT/HCPCS: 49592; 82947; 93005; 99499; C1781; J0131; J0360; J0690; J1100; J1171; J1805; J1885; J1920; J2003; J2250; J2405; J2704; J2795; J3010

== ENCOUNTER → 2025-08-02 06:59 | Outpatient (BNV) | payer OTHER, SELFPAY | PROVIDERS: PCP Internal Medicine; Visit Provider Surgery | DX: K42.9 Umbilical hernia without obstruction or gangrene (principal) | CPT/HCPCS: 49592; 99499 ==

== ENCOUNTER → 2025-08-05 08:37 | Outpatient (BNVA) | payer OTHER, SELFPAY | PROVIDERS: PCP Internal Medicine | DX: Z01.30 Encounter for examination of blood pressure without abnormal findings (principal) | CPT/HCPCS: 99211 ==

== ENCOUNTER 2025-08-15 09:27 | Outpatient (AMB) | payer OTHER, SELFPAY ==
--- NOTE | 2025-08-15 09:32 | A.OFFVIS_ITS ---
Vital Signs 08/15/25 09:40 Height 5 ft 10 in Weight 224 lb BMI 32.1 BP 152/90 H Blood Pressure Location Lt brachial Position Sitting Intake Visit Reasons: s/p incarcarated umbilical hernia pss mesh Intake Note: Pt states, I'm here for follow up on my hernia operation. no complaints Allergies No Known Allergies Allergy (Verified 08/15/25 09:35) Medication List - Last Reconciled 08/15/25 by Sony Edmonds, RN ascorbic acid (vitamin C) 1,000 mg PO QPM cyanocobalamin (vitamin B-12) (Vitamin B-12) 50 mcg PO DAILY fluoride (sodium) 0.5 mg PO DAILY al (Zingiber officinalis) 500 mg PO QPM lancets Check blood sugar twice daily as directed NS metformin ER 750 mg PO BID 3 months [id number] oil-vit D3 300-1,000-1,000 mg-mg-unit 1 cap PO QPM OneTouch Ultra Test (blood sugar diagnostic) Check fasting glucose twice a day before meals NS OneTouch Ultra2 Meter (blood-glucose meter) Check fasting blood sugar twice a day before meals NS rosuvastatin 5 mg PO 3XW 3 months [id number] 30-25-62.5 mg (Prostate Health Men's) 1 cap PO QPM turmeric 400 mg PO QPM HPI HPI s/p incarcarated umbilical hernia pss mesh: Details: Doing well, denies pain, no longer taking pain medications. His only concern is a small bump near the hernia. Denies any drainage, changes to the skin. Denies fevers at home. Appetite and bowel function at baseline. Avoiding heavy lifting. [facility] Medical History Dyslipidemia Uncontrolled type 2 diabetes mellitus with hyperglycemia Irreducible umbilical hernia Surgical History (Updated 08/15/25 @ 09:56 by Rigoberto Smith PA-C) S/P umbilical hernia repair, follow-up exam (08/02/25) Hx of tooth extraction S/P LASIK surgery Family History Father Brain cancer Mother Multiple sclerosis Paternal Uncle Diabetes mellitus Social History Household Members: Children Housing: House Are you a primary acute care physician to a significant other at home: No Do you presently have visiting nurse or other home services: No Patient Tobacco Use Status: Never used Tobacco e-Cigarette/Vaping Use: Never Used service: No Current occupational status: employed Current occupation: HVAC Current occupational exposures/hazards: Yes Cognitive needs: No Hearing needs: No Vision needs: Yes Physical Exam Vital Signs: Last Vital Signs BP 152/90 H 08/15/25 09:40 BMI result Body Mass Index 32.1 Const General: comfortable and no acute distress Orientation/consciousness: patient oriented x3 Resp Effort & Inspection: normal respiratory effort and able to speak in complete sentences GI Other: Incision site clean dry intact, some mild edema and ecchymosis in the lateral right edge of the incision, ecchymosis expanding towards the flank. no erythema, fluctuance, nontender, no drainage. Inspection: No distended Palpation (GI): Soft to palpation and nontender Neuro General: patient oriented x3 Assessment & Plan Assessment & Plan (1) S/P umbilical hernia repair, follow-up exam: Onset Date: 08/02/25 Comment: Repair of chronically incarcerated umbilical hernia with Phasix mesh Yobany Sam Code(s): Z09 - Encounter for follow-up examination after completed treatment for conditions other than malignant neoplasm Category: Surgical Plan 49-year-old male s/p umbilical hernia repair on 08/02/[address] Riggs returning to the office for 2 week follow up. Patient overall doing well, not experiencing pain. Only concern being a small lump on the right side of the incision. Denying nausea or vomiting, fevers, chills. Appetite and bowel function at baseline. On exam the abdomen is soft and benign, incision appears to be healing well, there was a small bit of edema in the right side with the incision and did not have any fluctuance, no overlying skin changes and was nontender to palpation. It is possible that this is a small seroma, edema related to surgical or possibly related to approximation during skin closure. We will continue to follow this. Not requiring any intervention at this time. Today he is again hypertensive in the office, patient was held for observation postoperatively for hypertension, ultimately discharged. He did follow up with his primary care who states he did not need any intervention. States he may have, white coat syndrome. He is planning to get a blood pressure cuff to do readings at home, we will log these and returned to his PCP if these are still elevated. We will continue with activity restrictions no heavy lifting greater than 15-20 lb until September 13. Patient will follow-up in 3 weeks. Can follow up sooner with any concerns. Coding Level of Care Code Est Pt Level 4 (38380) Diagnoses S/P umbilical hernia repair, follow-up exam Z09
[2025-08-15 09:40] VITALS: BP 152/90; BMI 32.1
--- OUTSIDE RECORDS SUMMARY | 2025-08-15 10:40 | XMS_ITS | Clinical Summary ---
Author Organization [facility] Address [address] [place] [address] Phone Care Team Providers Care Sole Rounder Name Role Phone Carmen Monge MD Primary [...] topic Medical Devices Not on file Insurance [employer] DIRECT [employer] DIRECT [employer] DIRECT [employer] DIRECT [employer] [place] [address] [employer] DIRECT Care Teams Sole Rounder Relationship Specialty Start Date End Date Carmen Monge MD [address] [place] [address] [place] [id number] PCP - General 11/18/23 Additional Source Comments The information contained in this document represents components of the legal health record. It is not the complete legal health record.[facility]
== END 2025-08-15 09:50 | disposition home or self-care (01) ==
LOC: HO.HGS 09:28
PROVIDERS: PCP Internal Medicine
DX: K42.9 Umbilical hernia without obstruction or gangrene (principal)
CPT/HCPCS: 99214

== ENCOUNTER → 2025-08-15 09:27 | Outpatient (BNVA) | payer OTHER, SELFPAY | PROVIDERS: PCP Internal Medicine | DX: Z09 Encounter for follow-up examination after completed treatment for conditions other than malignant neoplasm (principal); K42.0 Umbilical hernia with obstruction, without gangrene | CPT/HCPCS: 99212 ==

== ENCOUNTER 2025-09-05 09:27 | Outpatient (AMB) | payer OTHER, SELFPAY ==
--- NOTE | 2025-09-05 09:36 | MHC.OFFVIS ---
Vital Signs 09/05/25 09:44 Height 5 ft 10 in Weight 233 lb BMI 33.4 Intake Visit Reasons: 3wk fu/v incarcarated umbilical hernia pss mesh Intake Note: This patient presents for one month follow-up status post Repair of chronically incarcerated umbilical hernia with Phasix mesh. Pt c/o; no complaints at this time. Supervisor Policy Change Clerks Required: No Accompanied by: Self / Same As Patient Allergies No Known Allergies Allergy (Verified 09/05/25 09:44) HPI HPI 3wk fu/v incarcarated umbilical hernia pss mesh: Details: He continues to do well after repair of an umbilical hernia with mesh last 08/02/2025. He denies significant complaints. He has good oral intake. [facility] Medical History Dyslipidemia Uncontrolled type 2 diabetes mellitus with hyperglycemia Irreducible umbilical hernia Surgical History S/P umbilical hernia repair, follow-up exam (08/02/25) Hx of tooth extraction S/P LASIK surgery Family History Father Brain cancer Mother Multiple sclerosis Paternal Uncle Diabetes mellitus Social History Household Members: Children Housing: House Are you a primary medical care evaluation specialist to a significant other at home: No Do you presently have visiting nurse or other home services: No Patient Tobacco Use Status: Never used Tobacco e-Cigarette/Vaping Use: Never Used service: No Current occupational status: employed Current occupation: HVAC Current occupational exposures/hazards: Yes Cognitive needs: No Hearing needs: No Vision needs: Yes Review of Systems Const Denies chills and Denies fever(s) Card Denies chest pain, Denies dyspnea and Denies dyspnea on exertion Resp Denies dyspnea and Denies dyspnea on exertion GI Denies abdominal pain Physical Exam Vital Signs: BMI result Body Mass Index 33.4 Const General: comfortable and no acute distress GI Other: Umbilical hernia repair site well healed, not infected, repair intact Assessment & Plan Assessment & Plan (1) S/P umbilical hernia repair, follow-up exam: Onset Date: 08/02/25 Comment: Repair of chronically incarcerated umbilical hernia with Phasix mesh Yobany Sam Code(s): Z09 - Encounter for follow-up examination after completed treatment for conditions other than malignant neoplasm Category: Surgical Plan: He is doing very well postop. The repair site remains intact He can start going back to regular level of activities. He did have significant hypertension and I had a long discussion with him about the need for better control of this. I emphasized with him the importance of following up with his primary care physician for better control of his hypertension. He says he understands. Coding Level of Care Code Global (48933) Diagnoses S/P umbilical hernia repair, follow-up exam Z09
[2025-09-05 09:44] VITALS: BMI 33.4
--- OUTSIDE RECORDS SUMMARY | 2025-09-05 10:52 | XMS_ITS | Clinical Summary ---
Author Organization [facility] Address [address] [place] [address] Phone Care Team Providers Care Manugrapher Name Role Phone Carmen Monge MD Primary [...] topic Medical Devices Not on file Insurance [facility] DIRECT CONNE[employer]CARE DIRECT [employer] DIRECT [employer] DIRECT CONNE[employer] [place] [address] [employer] DIRECT Care Teams Manugrapher Relationship Specialty Start Date End Date Carmen Monge MD [address] [place] [address] [place] [id number] PCP - General 11/18/23 Additional Source Comments The information contained in this document represents components of the legal health record. It is not the complete legal health record.[facility]
== END 2025-09-05 09:52 | disposition home or self-care (01) ==
LOC: HO.HGS 09:28
PROVIDERS: PCP Internal Medicine; Visit Provider Surgery
DX: Z09 Encounter for follow-up examination after completed treatment for conditions other than malignant neoplasm (principal); Z48.89 Encounter for other specified surgical aftercare
CPT/HCPCS: 99213

== ENCOUNTER → 2025-09-05 09:27 | Outpatient (BNVA) | payer OTHER, SELFPAY | PROVIDERS: PCP Internal Medicine; Visit Provider Surgery | DX: Z09 Encounter for follow-up examination after completed treatment for conditions other than malignant neoplasm (principal); I10 Essential (primary) hypertension; Z87.19 Personal history of other diseases of the digestive system | CPT/HCPCS: 99212 ==